=== PATIENT | male | born 2000 | race African-American/Black ===

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

== ENCOUNTER 2021-04-29 20:02 | Emergency (ER) | payer SELFPAY ==
[~2021-04-29] VITALS: Ht 182.9 cm; Wt 63.7 kg
[~2021-04-29 20:02] MED LIST changes: +NAPROSYN500 MG PO
[2021-04-29 21:25] VITALS: BP 123/72
[2021-04-29] MEDS ORDERED: HYDROCORTISONE0.5 % TOP (23:51)
[2021-04-29] MEDS ORDERED: AMOX/K CLAV875 M1 PO (23:51)
== END 2021-04-30 00:20 | disposition home or self-care (01) | DRG 607 ==
LOC: ED 20:02
DX: L30.9 Dermatitis, unspecified (principal)